=== PATIENT | male | born 2000 | race Caucasian/White ===

== ENCOUNTER 2021-06-23 12:13 | Emergency (ER) | payer OTHER, SELFPAY ==
[2021-06-23 12:14] VITALS: BP 146/70; PULSE 75; RESP 16; TEMP 35.9; O2SAT 100; BMI 24.4
--- NOTE | 2021-06-23 12:55 | RAD_ITS ---
STUDY: X-RAY - LEFT HAND, ATTENTION LEFT THUMB. REASON FOR EXAM: Male, 21 years old. Left thumb injury. Hit with a mallet TECHNIQUE: 3 view(s) of the finger were obtained. COMPARISON: None. FINDINGS: Normal metacarpal head. Normal metacarpophalangeal joint. Normal proximal phalanx. Normal distal phalanx. Normal distal interphalangeal joint. Soft tissue injury overlying the distal phalanx. RAD/Finger(s) Min 2 Views IMPRESSION: Soft tissue injury overlying the distal phalanx. Electronically Signed: Nikhil Mcintosh MD at 13:18 EDT ,
--- NOTE | 2021-06-23 12:55 | EX.ED.UPPERE ---
HPI History of Present Illness HPI Narrative: Left thumb laceration after being hit with a mallet Chief Complaint: Upper Extremity Injury Informant: patient Occured/Mechanism Mechanism/Context: Yes injury and Yes blunt trauma Onset/Context/Timing Onset: Today and Hours Context: Sudden Onset Timing: Continuous Current Severity: Mild Maximum Severity: Mild Associated Symptoms Associated Symptoms: Negative for Parasthesia, Weakness and Loss of Funtion Narrative Narrative: 21-year-old male no seen past medical history believes his last tetanus shot was around 9 years ago. He is right-hand dominant. Patient was using a mallet at work today missed and smashed his left thumb. There was a laceration bleeding. It was dressed at the site he was brought in as a workers comp injury. He denies any other complaints. This occurred around an hour to an hour and a half ago. Tetanus Immunization: 5-10 years Prior similar symptoms: No Recent Illness/Hospitalization: No PFSH PFSH Medical History no medical history no medical history Home Medications NK 06/23/21 [History Last Taken Unknown] Allergy/AdvReac Type Severity Reaction Status Date / Time No Known Allergies Allergy Verified 06/23/21 12:25 Surgical History Hx of LASIK Social History Smoking Status: Never smoker ROS ROS ED ROS Narrative Denies recent illness. Review of Systems ROS Unobtainable: Denies due to encephalopathy Constitutional Constitutional ED: Denies fever(s) Eyes Eyes: Denies change in vision ENT ENT ED: Denies ear pain Cardiovascular Cardiovascular: Denies chest pain Respiratory/Chest Respiratory/Chest: Denies dyspnea Gastrointestinal Gastrointestinal: Denies abdominal pain, diarrhea, nausea or vomiting Genitourinary Genitourinary ED: Denies dysuria Musculoskeletal Musculoskeletal: Denies myalgias Integumentary Denies rash Neurologic Neurologic: Denies headache(s) Psychiatric Psychiatric: Denies depression Endocrine Endocrinology: Denies polyuria Hematologic/Lymphatic Hematologic/Lymphatic: Denies easy bruising Allergic/Immunologic Allergic/Immunologic ED: Denies urticaria EXAM Physical Exam Narrative Exam Narrative: 18-year-old male no acute distress. Vital signs stable afebrile. HEENT neck heart lung abdominal exams are unremarkable. Chest wall nontender. Back nontender. Moving all 4 extremities. Specifically left shoulder elbow and wrist are nontender no trauma. Left thumb I took a bloody dressing off the left thumb. There is a laceration on the palmar aspect of the left thumb. One is about 2.5 cm a second laceration is less than a centimeter. There is swelling tenderness. No gross bony deformity. No active bleeding at this time. No bony deformity. He has full extension to 180 degrees. He has limited flexion which she states is due to pain. The other fingers and the palm of the hand are unremarkable nontender. Const Vital Signs: 06/23/21 12:14 Temperature 96.7 F L Temperature Source Temporal Pulse Rate 75 Respiratory Rate 16 Blood Pressure 146/70 H Blood Pressure Mean 95 Pulse Ox 100 Oxygen Delivery Method Room Air Positive well nourished and well developed; Negative for obese, cachectic, contractures or unkempt General Appearance ED: well developed and NAD; Negative for unkempt, cachectic, contractures, cyanotic or diaphoretic Nutritional Appearance: Negative for cachectic or obese HEENT Reports moist mucous membranes normocephalic and atraumatic Eyes PERRL and EOMs intact bilaterally Neck full ROM and supple General: Negative for tenderness Chest Wall inspection of chest normal and palpation of chest normal Resp normal respiratory effort and clear to auscultation bilaterally Effort and Inspection: Negative for pain with movement Auscultation: Negative for rales, rhonchi or wheezes Cardio regular rate, regular rhythm, S1 normal heart sound, S2 normal heart sound and no murmurs GI non-tender, non-distended and no masses Auscultation: normoactive bowel sounds Palpation: soft; Negative for tender, guarding or rebound tenderness present Back/Spine no CVA tenderness General Back: Negative for CVA tenderness Cervical Spine: Negative for cervical spine tenderness Thoracic Spine / Upper Back: Negative for thoracic spinal tenderness Lumbar Spine / Lower Back: Negative for lumbar spinal tenderness Extremity normal to inspection and full ROM Extremity Narrative: Except left thumb has 2 lacerations near the tip on the palmar and. The first laceration is about 2.5 cm. The second is less than a centimeter. Currently no active bleeding but there is no bleeding at the site. Nails intact. There is no bony deformity. There is tenderness. Normal touch sensation. General Extremety ED: Negative for edema General Extremity: Negative for edema Neuro oriented x3 and moves all extremities Sensorium / Orientation: alert, oriented to person, oriented to place and oriented to time; Negative for orientation impaired, lethargic or stuporous Motor Exam: strength 5/5 throughout Psych mental status grossly normal Appearance: Negative for unkempt Mood & Affect: Negative for depressed or tearful Skin Skin Narrative: Left thumb palmar side lacerations x2. Lesions: no lesions Rashes: no rashes Trauma: laceration MDM MDM MDM Narrative Medical decision making narrative: Patient has a left thumb injury after being struck with a mallet. Lacerations to the thumb will need to be repaired. Tetanus will be updated because he is at least 9 years out from his last tetanus shot. X-ray left thumb will be obtained. Patient had 2 lacerations on his left thumb tip. After digital block. Both were cleaned with Shur-Clens. Washed with saline. Explored. First laceration was 2 cm closed using 3 simple erupted 4-0 Ethilon sutures. The second laceration was 1 cm closed with 2 simple interrupted 4-0 Ethilon sutures. Radiography Diagnostic Testing: Left thumb x-ray 3 views interpreted myself shows no acute abnormality. No fracture. Also read by the radiologist who agrees. No foreign body. Procedures Lacerations Left thumb tip lacerations x2: Length: 0.79 in Depth: Sub Q Shape: Linear Prep: Shure-Clens Laceration repair: Digital block Number of Sutures/Laura: 3 Suture Information: Ethilon, Simple and 4-0 Comment: Left thumb tip laceration #1. 2 cm in length. Digital block. Cleaned with Shur-Clens. Washed with saline. Explored. Closed using #3 4-0 Ethilon simple interrupted sutures. Left thumb laceration #2. 1 cm. Same digital block. Washed with saline. Cleaned with Shur-Clens. Explored. Closed using 2 simple interrupted 4-0 Ethilon sutures. Proper hemostasis wound closure obtained. Patient was instructed on wound care and suture removal in 7 to 10 days. Discharge Plan Triage Chief Complaint: Upper Extremity Injury ED Provider: Marbin Hunt Dx/Rx/DC Orders Clinical Impression: Laceration of left thumb, Encounter related to worker's compensation claim Instructions: ED Laceration: All Closures Prescriptions: No Action NK RF: 0 Primary Care Provider: Care Physician,No Primary Referrals: Corporate,Care [GROUP OF PHYSICIANS] - 10 Day for suture removal Care Physician,No Primary [Primary Care Provider] - Activity Restrictions/Additional Instructions: Ice and elevate thumb to decrease pain and swelling. Motrin and Tylenol for pain and swelling. Keep the area clean and dry. If it gets wet dry it off thoroughly. Clean daily with soap and water or peroxide and water. Apply antibiotic ointment daily. Watch for any signs of infection such as pus, swelling, red streaks or fever seen return. Stitches out in 7 to 10 days. Your tetanus was updated you are good for 10 years. Disposition Disposition: Home, Self Care
[2021-06-23] MEDS: Diphth,Pertuss(Acell),Tet Vac 0.5 ML Vial IM (13:04)
[2021-06-23] MEDS: Lidocaine 1% (20 ml mdv) 20 ML Vial 10 ML INFILT (13:05)
[2021-06-23 15:55] VITALS: PULSE 78; RESP 16; O2SAT 100
== END 2021-06-23 15:57 | disposition home or self-care (01) ==
PROVIDERS: Emergency Provider Emergency Medicine; Visit Provider Emergency Medicine
DX: S61.012A Laceration without foreign body of left thumb without damage to nail, initial encounter (principal); W22.8XXA Striking against or struck by other objects, initial encounter; Y99.0 Civilian activity done for income or pay; Y92.89 Other specified places as the place of occurrence of the external cause; Z23 Encounter for immunization
CPT/HCPCS: 12001; 73140; 90471; 90715; 99284